=== PATIENT | female | born 1960 | race Caucasian/White ===

== ENCOUNTER 2022-02-16 12:06 | Emergency (ER) | payer MEDICARE, MEDICAID, SELFPAY ==
[2022-02-16 12:25] VITALS: BP 143/99; PULSE 95; RESP 16; TEMP 36.5; O2SAT 100
--- NOTE | 2022-02-16 12:44 | ED.GENADULT ---
HPI - General Adult General Chief complaint: Urogenital-Female Stated complaint: uti Source: patient Mode of arrival: ambulatory Limitations: no limitations History of Present Illness HPI narrative: Patient presents for evaluation of urinary symptoms for the last several days. She cannot provide me with an exact date of symptom onset but reports urinary urgency, hesitancy, and dysuria. She has some right lower abdominal pain and low back pain. She denies any fever, chills, nausea, vomiting, hematuria, urinary frequency. She believes she has a urinary tract infection. She is diabetic but has not been checking her BS at home. She states that her BS are controlled on metformin. No hx of renal stones. Surgical history positive for cholecystectomy. She is not taking any medications to assist with her symptoms. No additional complaints or concerns. Related Data Home Medications Medication Instructions Recorded Confirmed atorvastatin 40 mg tablet 40 mg PO DAILY 02/16/22 02/16/22 duloxetine 60 mg capsule,delayed 60 mg PO DAILY 02/16/22 02/16/22 release fluoxetine 10 mg capsule 10 mg PO DAILY 02/16/22 02/16/22 levocetirizine 5 mg tablet 5 mg PO DAILY 02/16/22 02/16/22 levothyroxine 125 mcg tablet 125 mcg PO DAILY 02/16/22 02/16/22 metoprolol tartrate 25 mg tablet 25 mg PO DAILY 02/16/22 02/16/22 omeprazole 40 mg capsule,delayed 40 mg PO DAILY 02/16/22 02/16/22 release quetiapine 100 mg tablet 100 mg PO DAILY 02/16/22 02/16/22 rivaroxaban 20 mg tablet (Xarelto) 20 mg PO DAILY 02/16/22 02/16/22 spironolactone 25 1 tablet PO DAILY 02/16/22 02/16/22 mg-hydrochlorothiazide 25 mg tablet trazodone 100 mg tablet 100 mg PO DAILY 02/16/22 02/16/22 Allergies Allergy/AdvReac Type Severity Reaction Status Date / Time hydromorphone [From Dilaudid] Allergy Rash Verified 02/16/22 12:32 Review of Systems Review of Systems: CONSTITUTIONAL: Denies fever, chills, or sweats. EYES: Denies visual changes, redness, or discharge. ENT: Denies rhinorrhea, congestion, sore throat, or otalgia. CARDIOVASCULAR: Denies chest pain, palpitations, or edema. RESPIRATORY: Denies cough or dyspnea. GASTROINTESTINAL: Reports right lower abdominal pain. Denies nausea, vomiting, or diarrhea. GENITOURINARY: Reports urinary urgency, hesitancy and dysuria SKIN: Denies rash or itching. MUSCULOSKELETAL: Reports low back pain. Denies joint pain, or myalgia. NEUROLOGIC: Denies headache, numbness, dizziness, or weakness. PSYCHIATRIC: Denies anxiety or depression. [facility] Past Medical History Medical History Diabetes GERD (gastroesophageal reflux disease) Hypertension Hypothyroidism Rectal prolapse Surgical History Surgical History History of cholecystectomy Family History Family History Mother Diabetes mellitus Heart disease Father Diabetes mellitus Heart disease Social History Social History Smoking status: Never smoker Substance use: never Living arrangements: with family Gender identity (if verbalized by the patient): Female Sexual Orientation (if Verbalized by the Patient): Straight or Heterosexual Spiritual care concerns: No Exam Narrative: GENERAL: Well-appearing, well-nourished, and in no acute distress. HEAD: Normocephalic, atraumatic. EYES: PERRLA and EOMI. ENT: Nares clear, no rhinorrhea or epistaxis. Mucous membranes moist. Oropharynx without tonsillar hypertrophy exudate or other lesions. Bilateral TMs pearly araujo nonbulging NECK: Supple. No adenopathy or masses. No carotid bruits or JVD CHEST: Clear to auscultation. No respiratory distress. No wheezes rales or rhonchi HEART: Regular rate and rhythm. No murmur heard. Normal peripheral pulses. ABDOMEN: Soft, mild tenderness i
== END 2022-02-16 12:40 | disposition left against medical advice (07) ==
PROVIDERS: Emergency Provider Nurse Practitioner
DX: R31.29 Other microscopic hematuria (principal); R10.31 Right lower quadrant pain; E11.9 Type 2 diabetes mellitus without complications; K21.9 Gastro-esophageal reflux disease without esophagitis; I10 Essential (primary) hypertension; E03.9 Hypothyroidism, unspecified
CPT/HCPCS: 81003; 99202; G0463